=== PATIENT | male | born 1990 | race Caucasian/White ===

== ENCOUNTER 2017-12-09 21:33 | Emergency (ER) | payer OTHER ==
[~2017-12-09] VITALS: Ht 172.7 cm; Wt 63.5 kg
[2017-12-09 21:47] VITALS: BP 140/90
--- NOTE | 2017-12-09 21:50 | NUR ---
TO LOBBY A/W BED, SURENDRA LATHAM NOTED
--- NOTE | 2017-12-09 23:35 | NUR ---
PATIENT PRESENTS TO ED WITH SWELLING AT BUG BITE SITES ON BILATERAL FEET . PT STATES HE NOTICED THEM AROUND 5AM 12-09-17, THEY HAVE BECOME RED AND SWOLLEN THROUGHOUT THE DAY. DENIES N/V/D; SKIN IS PINK/WARM/DRY; AAOX4 WITH EVEN AND STEADY GAIT; LUNGS CLEAR BL; HR EVEN AND REGULAR; PT DENIES ANY FEVER, CP, SOB, OR COUGH AT THIS TIME; PATIENT STATES PAIN OF 5/10 AT THIS TIME; VSS; PATIENT POSITIONED FOR COMFORT; HOB ELEVATED; BEDRAILS UP X2; BED DOWN. ER MD MADE AWARE OF PT STATUS.
[2017-12-10] MEDS ORDERED: CEPHALEXIN 500 MG CAP PO ONE (01:15)
[2017-12-10] MEDS ORDERED: SULFAMETH/TRIMETH DS 800/160MG 1 TAB PO ONE (01:15)
[2017-12-10] MEDS ORDERED: CLINDAMYCIN 150 MG CAP PO ONE (01:20)
[2017-12-10 01:40] VITALS: BP 138/84
--- NOTE | 2017-12-10 01:40 | NUR ---
Patient discharged with v/s stable. Written and verbal after care instructions given and explained. Patient alert, oriented and verbalized understanding of instructions. Ambulatory with steady gait. All questions addressed prior to discharge. ID band removed. Patient advised to follow up with PMD. Rx of KEFLEX AND BACTRIM given. Patient educated on indication of medication including possible reaction and side effects. Opportunity to ask questions provided and answered.
== END 2017-12-10 01:40 | disposition home or self-care (01) ==
LOC: MED 21:33
DX: L03.115 Cellulitis of right lower limb (principal); Z90.49 Acquired absence of other specified parts of digestive tract
CPT/HCPCS: 99283